=== PATIENT | female | born 1955 ===

== ENCOUNTER 2018-08-15 14:20 | Emergency (ER) | payer OTHER ==
[~2018-08-15] VITALS: Ht 157.5 cm; Wt 90.7 kg
[~2018-08-15 14:20] MED LIST: ABILIFY5 MG; ACYCLOVIR800 MG PO; CYMBALTA60 MG; KETO10TA2 PO; KLONOPIN1 MG/TAB; LAMICTAL25 MG PO; NEURONTIN300 MG PO; SEROQUEL50 MG; SIMBALTA PO
[2018-08-15] MEDS ORDERED: CYMBALTA20 MG (14:36)
== END 2018-08-15 16:48 | disposition home or self-care (01) ==
LOC: ER 14:20
DX: H57.12 Ocular pain, left eye (principal)

== ENCOUNTER 2019-10-08 12:46 | Outpatient (CLI) | payer OTHER ==
[~2019-10-08 12:46] MED LIST changes: +CYMBALTA20 MG
== END 2019-10-08 14:37 | disposition home or self-care (01) ==
LOC: MRI 12:46
DX: M54.5 Low back pain (principal)
CPT/HCPCS: 72148